=== PATIENT | female | born 1960 | race Caucasian/White ===

== ENCOUNTER → 2016-04-20 | Outpatient (CLI) | payer OTHER ==
[~2016-04-20] MED LIST: AMOXICILLIN PO; DICLOFENAC PO; FEOSOL PO; IBUPROFEN; LISINOPRIL20 MG PO; PEN-VEE K PO; TYLENOL PM EX-S1 TA3 PO; ULTRAM PO
--- NOTE | ~2016-04-20 | MY11 ---
[facility] A Service of [facility] RADIOLOGY TEXT RESULTS PATIENT: KEIRA HEREDIA LOCATION: [facility] : 56 UNIT #: [id number] AGE: [address]: Álvaro Jimenez MD SEX: F ORDER DR: [id number] [facility] [address] [facility] [place], [place] [address] [id number] O MR#: [id number] Acc #: [id number] NAME: KEIRA HEREDIA. : 1960 SEX: F STUDY DATE/TIME: 04/20/2016 9:41 UNIT: [facility] ROOM: STUDY DESCRIPTION: MY Mammogram Screening Dig Lonnie Attending Physician: Álvaro Jimenez M.D. Referring Physician: Álvaro Jimenez M.D. Ordering Physician: Álvaro Jimenez M.D. Primary Care Physician: Álvaro Jimenez M.D. MEDICAL IMAGING REPORT This report is preliminary unless electronic signature is present EXAM Bilateral digital screening mammogram with CAD. HISTORY Routine screening. No current complaints. It was noted that back in August 2013 a 6-month followup of both breasts was recommended but patient states she failed to return for that examination. Today's exam includes MLO and CC views of both breasts. The breasts are almost entirely fatty replaced. There are no masses or abnormal calcifications. The faint nodules in the left breast noted previously are stable and faint nodule in the lateral right breast is also stable. Lack of change in 3 year interval indicates a benign nature. IMPRESSION No change. No evidence of malignancy. Patients over the age of 40 are entered into a reminder system with target due date for the next mammogram. A result letter will also be sent to the patient. BIRADS: 2 - benign findings. Dictated by... Jay Narvaez M.D. THIS IS AN ELECTRONICALLY VERIFIED REPORT Jay Narvaez M.D. at 04/20/2016 2:07 PM [facility] A Service of [facility] RADIOLOGY TEXT RESULTS PATIENT: KEIRA HEREDIA LOCATION: [facility] : 56 UNIT #: [id number] AGE: [address]: Álvaro Jimenez MD SEX: F ORDER DR: Napoleon TD: 04/20/2016 13:11 JOB #: [id number] MEDICAL IMAGING REPORT COPY
== END | disposition home or self-care (01) ==
LOC: CWCC 08:57
DX: Z12.31 Encounter for screening mammogram for malignant neoplasm of breast (principal)
CPT/HCPCS: G0202